=== PATIENT | male | born 1965 | race Caucasian/White ===

== ENCOUNTER 2018-10-07 08:11 | Emergency (ER) | payer SELFPAY ==
--- NOTE | 2018-10-07 08:51 | ER Document Report ---
HPI - HPI Patient complains to provider of: R elbow pain and swelling Time Seen by Provider: 10/07/18 08:35 Pain Level: 4 Context: 55-year-old male with no known past medical history but came into the ER hypertensive presents for right elbow pain, swelling, warmth, redness that started on Saturday. No trauma that he is aware of. He states he thinks it may have started last Saturday or when he was helping a friend carrying some wood. Patient is able to move his elbow but cannot fully extend it. Patient states there is some pain over the radial head. Patient denies dizziness or lightheadedness, headache, shortness of breath or chest pain, nausea or vomiting, urinating normally. No other complaints. - CONSTITUTIONAL Constitutional: DENIES: Fever, Chills - EENT EENT: DENIES: Sore Throat, Ear Pain, Eye problems - NEURO Neurology: DENIES: Headache, Weakness, Vision blurred, Dizzinesss / Vertigo - CARDIOVASCULAR Cardiovascular: DENIES: Chest pain - RESPIRATORY Respiratory: DENIES: Trouble Breathing, Coughing - GASTROINTESTINAL Gastrointestinal: DENIES: Abdominal Pain, Black / Bloody Stools - URINARY Urinary: DENIES: Dysuria, Urgency, Frequency - MUSCULOSKELETAL Musculoskeletal: REPORTS: Extremity pain - right elbow Past Medical History - Social History Smoking Status: Current Every Day Smoker Chew tobacco use (# tins/day): No Frequency of alcohol use: Occasional Drug Abuse: Marijuana Family History: CVA - dad Patient has suicidal ideation: No Patient has homicidal ideation: No - Past Medical History Cardiac Medical History: Reports: Hx Hypertension Renal/ Medical History: Denies: Hx Peritoneal Dialysis Vertical Provider Document - CONSTITUTIONAL Notes: PHYSICAL EXAMINATION: Reviewed vital signs and charting by RN GENERAL: Alert, interacts well. No acute distress. HEAD: Normocephalic, atraumatic. EYES: Pupils equal and round. Extraocular movements intact. ENT: Oral mucosa moist NECK: Full range of motion. Trachea midline. EXTREMITIES: Moves all 4 extremities spontaneously. Edema right elbow over the radial head with erythema, warm to touch. No cyanosis. Normal distal neurovascular exam NEUROLOGIC: Oriented and appropriate. Normal speech. PSYCH: Normal affect, normal mood. Course - Re-evaluation Re-evalutation: 10/07/18 08:52 Presentation most consistent with. Patient has never had an episode so I will get an x-ray of the right elbow to ensure there is no other pathology going on. 10/07/18 10:03 Patient grossly hypertensive, initial blood pressure 220/115 and on discharge 220/115. I gave patient a 2-week supply of amlodipine 10 mg to take daily. I instructed patient it is critical that he follow-up with primary care as he is extremely high risk for cardiovascular event or CVA. X-ray negative. Patient given a 5-day course of prednisone to help with the flare. Stable for discharge. - Vital Signs Vital signs: Temp Pulse Resp BP Pulse Ox 97.8 F 77 18 212/114 H 96 10/07/18 08:14 10/07/18 08:14 10/07/18 08:14 10/07/18 08:14 10/07/18 08:14 Discharge - Discharge Clinical Impression: Gout Qualifiers: Gout site: elbow Gout etiology: unspecified cause Chronicity: acute Laterality: right Qualified Code(s): M10.9 - Gout, unspecified Condition: Good Disposition: HOME, SELF-CARE Instructions: Gout ([facility]), Gout Diet ([facility]) Additional Instructions: You were seen today for gout. Take ibuprofen 600 mg with Tylenol 1000 mg every 6 hours as needed for pain. Follow-up with your primary care doctor in the next several days. Return if you have fever greater than 100.4F, worsening pain, become unable to move the knee, or have any other symptoms that are worrisome to you. Prescriptions: Amlodipine Besylate [Norvasc 10 mg Tablet] 10 mg PO DAILY #15 tablet Prednisone [Deltasone 20 mg Tablet] 40 mg PO DAILY 5 Days #10 tablet Forms: Return to Work Referrals: [facility] [Provider Group] - Follow up as needed
--- NOTE | 2018-10-07 09:35 | RADIOLOGY REPORT (SQ) ---
EXAM DESCRIPTION: ELBOW RIGHT OVER 2 VIEWS COMPLETED DATE/TIME: 10/07/2018 9:11 am REASON FOR STUDY: pain and swelling COMPARISON: None. NUMBER OF VIEWS: Four views. TECHNIQUE: AP, lateral, and both oblique radiographic images acquired of the right elbow. LIMITATIONS: None. FINDINGS: MINERALIZATION: Normal. BONES: No acute fracture or dislocation. No worrisome bone lesions. JOINT: Osteophytes and loose bodies especially lateral compartment. Small effusion. SOFT TISSUES: No soft tissue swelling. No foreign body. OTHER: No other significant finding. IMPRESSION: Osteoarthritis. No acute findings. TECHNICAL DOCUMENTATION: JOB ID: [id number] [employer]- All Rights Reserved Reading location - IP/workstation name: [email or web address]
[2018-10-07] MEDS ORDERED: PREDNISONE 20 MG TABLET PO ONE (09:38)
[2018-10-07 09:50] VITALS: BP 210/118
== END 2018-10-07 09:55 | disposition home or self-care (01) ==
LOC: ER 08:11
DX: M10.9 Gout, unspecified (principal); M25.521 Pain in right elbow; I10 Essential (primary) hypertension; F17.200 Nicotine dependence, unspecified, uncomplicated
CPT/HCPCS: 99283; 73080; J7512